=== PATIENT | male | born 1945 | race Caucasian/White ===

== ENCOUNTER → 2017-03-01 | Outpatient (CLI) | payer MEDICARE, OTHER ==
--- NOTE | 2017-03-06 14:32 | XCELERA REPORT ---
[address] [address] Transthoracic Echocardiogram Report Name: GIANLUCA HUGHES JR Age: 71 yrs Gender: Male : 1945 Patient Status: Outpatient Patient Location: Study Date: 03/01/2017 10:28 AM Height: 72 in Weight: 276 lb BSA: 2.4 m2 Procedure: A two-dimensional transthoracic echocardiogram with color flow and Doppler was performed. The study was technically difficult with many images being suboptimal in quality. Images were not obtained from all of the standard acoustic windows due to the limited scope of the study. Reason For Study: CHEST PAIN. History: CHEST PAIN. Ordering Physician: BEATRIZ PALACIOS Performed By: Jeffery Harris Interpretation Summary The left ventricle is normal in size. There is normal left ventricular wall thickness. LV EF is > than 65% Left ventricular systolic function is normal. Doppler measurements suggest impaired left ventricular relaxation, which is associated with grade I/IV or mild diastolic dysfunction There is no thrombus. Cannot ezclude mild hypokinesis off a small area of the IV septum.Rest of the LV poole contract normally. The right ventricle is not well visualized secondary to technical limitations The left atrial size is normal. There is no evidence of mitral valve prolapse. There is no vegetation seen on the mitral valve. There is no mitral valve stenosis. There is a trace amount of mitral regurgitation There is no aortic valve stenosis There is no LVOT obstruction. No aortic regurgitation is present. There is no tricuspid stenosis. There is a trace amount of tricuspid regurgitation Right ventricular systolic pressure is normal. RVSP is 21 mm of Hg , with RA mean of 5. There is no pericardial effusion. The aortic root is mildly dilated MMode/2D Measurements & Calculations RVDd: 4.2 cm LVIDd: 4.8 cm FS: 38.5 % Ao root diam: 3.8 cm IVSd: 0.97 cm LVIDs: 3.0 cm EDV(Teich): 108.8 ml LVPWd: 0.99 cm ESV(Teich): 34.0 ml Ao root area: 11.5 cm2 EF(Teich): 68.7 % Doppler Measurements & Calculations MV E max glenroy: MV dec slope: Ao V2 max: LV V1 max P.8 cm/sec 125.6 cm/sec 4.0 mmHg MV A max glenroy: 454.1 cm/sec2 Ao max PG: LV V1 max: 96.3 cm/sec MV dec time: 6.3 mmHg 100.2 cm/sec MV E/A: 0.83 0.18 sec PA V2 max: TR max glenroy: RAP systole: 87.5 cm/sec 199.7 cm/sec 5.0 mmHg PA max PG: TR max P.0 mmHg 3.1 mmHg RVSP(TR): 21.0 mmHg Left Ventricle The left ventricle is normal in size. There is normal left ventricular wall thickness. LV EF is > than 65%. Left ventricular systolic function is normal. Doppler measurements suggest impaired left ventricular relaxation, which is associated with grade I/IV or mild diastolic dysfunction. Cannot ezclude mild hypokinesis off a small area of the IV septum.Rest of the LV poole contract normally. There is no thrombus. Right Ventricle The right ventricle is not well visualized secondary to technical limitations. Atria The right atrium is normal. The left atrial size is normal. Mitral Valve There is no evidence of mitral valve prolapse. There is no vegetation seen on the mitral valve. There is no mitral valve stenosis. There is a trace amount of mitral regurgitation. Aortic Valve There is no aortic valvular vegetation. There is no aortic valve stenosis. There is no LVOT obstruction. No aortic regurgitation is present. Tricuspid Valve There is no tricuspid stenosis. There is a trace amount of tricuspid regurgitation. Right ventricular systolic pressure is normal. RVSP is 21 mm of Hg , with RA mean of 5. Pulmonic Valve There is no pulmonic valvular stenosis. There is no pulmonic valvular regurgitation. Great Vessels The aortic root is mildly dilated. Effusions There is no pericardial effusion. : BEATRIZ PALACIOS > Beatriz Palacios
== END ==
LOC: SP 10:08
PROVIDERS: ATTEND Specialist
DX: R07.9 Chest pain, unspecified (principal)
CPT/HCPCS: 93306

== ENCOUNTER → 2017-03-05 | Outpatient (CLI) | payer MEDICARE, OTHER ==
--- NOTE | 2017-03-05 14:44 | RADIOLOGY REPORT (SQ) ---
EXAM DESCRIPTION: U/S ABDOMEN COMPLETE W/O DOP COMPLETED DATE/TIME: 03/05/2017 10:56 am REASON FOR STUDY: ABNORMAL LIVER FUNCTION (K76.89) K76.89 OTHER SPECIFIED DISEASES OF LIVER COMPARISON: None. TECHNIQUE: Dynamic and static grayscale images acquired of the abdomen and recorded on PACS. Additio nal selected color Doppler and spectral images recorded. LIMITATIONS: Study limited due to acoustical interference from fat or from air in the bowel. FINDINGS: PANCREAS: Obscured. LIVER: Echotexture is coarse with increased echogenicity consistent with fatty infiltration. LIVER VASCULATURE: Obscured. GALLBLADDER: No stones. Normal wall thickness. No pericholecystic fluid. ULTRASOUND-DETECTED ANDERSON'S SIGN: Negative. INTRAHEPATIC DUCTS AND COMMON DUCT: Obscured. INFERIOR VENA CAVA: Obscured. AORTA: No aneurysm. RIGHT KIDNEY: Normal size. Normal echogenicity. No solid or suspicious masses. No hydronephrosis. No calcifications. LEFT KIDNEY: 4.5 cm cyst lower pole. No hydronephrosis. SPLEEN:Normal size. No solid masses. PERITONEAL AND PLEURAL SPACES: No ascites or effusions. OTHER: No other significant finding. IMPRESSION: Technical limitations. Fatty liver. No ascites. TECHNICAL DOCUMENTATION: JOB ID: [id number] [email or web address] All Rights Reserved
== END ==
LOC: RAD 09:19
PROVIDERS: ATTEND Physician Assistant
DX: K76.89 Other specified diseases of liver (principal)
CPT/HCPCS: 76700

== ENCOUNTER → 2018-09-09 | Outpatient (CLI) | payer MEDICARE, OTHER ==
[2018-09-10 08:39] LABS: HEPATITIS C VIRUS AB <0.1 s/co ratio (0.0-0.9)
[2018-09-10 09:44] LABS: HEPATITIS B SURFACE AB QUAL Non Reactive (.); HEPATITS B SURFACE ANTIGEN Negative (Negative)
[2018-09-10 14:52] LABS: ACTIN (SMOOTH MUSCLE) ANTIBODY 90 Units (0-19); MITOCHONDRIAL (M2) ANTIBODY <20.0 Units (0.0-20.0)
== END ==
LOC: LAB 10:45
PROVIDERS: ATTEND Internal Medicine Gastroenterology
DX: R94.5 Abnormal results of liver function studies (principal)
CPT/HCPCS: 36415; 86038; 86235; 86256; 86706; 86803; 86804; 87340